=== PATIENT | female | born 2005 | race Caucasian/White ===

== ENCOUNTER 2024-04-19 17:58 | Emergency (ER) | payer OTHER ==
[~2024-04-19] VITALS: Ht 157.5 cm; Wt 64.5 kg
[2024-04-19 18:47] LABS: BASO # 0.06 K/mm3 (0.02-0.10); EOS # 0.18 K/mm3 (0.04-0.40); EOS % 2.8 % (1.0-5.0); HEMATOCRIT 35.9 % (37.0-47.0); HEMOGLOBIN 10.8 g/dL (12.5-16.0); LYMPH# 2.18 K/mm3 (1.50-4.00); MEAN CELL VOLUME 75 fl (78-100); MEAN CORPUSCULAR HEMOGLOBIN 23 pg (27-31); MEAN CORPUSCULAR HGB CONC 30 g/dL (33-37); MEAN PLATELET VOLUME 9.9 fl (7.4-10.4); MONO # 0.71 K/mm3 (0.20-0.80); NEU # 3.32 K/mm3 (1.40-6.50); PLATELET COUNT 310 K/mm3 (130-400); RED BLOOD COUNT 4.77 M/mm3 (4.10-5.30); RED CELL DISTRIBUTION WIDTH 14.4 % (11.5-14.5); WHITE BLOOD COUNT 6.5 K/mm3 (4.8-10.8)
[2024-04-19 18:50] LABS: ALBUMIN 4.3 g/dL (3.5-5.0)
[2024-04-19 18:52] LABS: CALCIUM 9.6 mg/dL (8.3-10.5)
[2024-04-19 18:53] LABS: TOTAL PROTEIN 7.4 g/dL (6.4-8.3)
[2024-04-19 18:55] LABS: TOTAL BILIRUBIN 0.2 mg/dL (0.2-1.2)
[2024-04-19] MEDS ORDERED: NS 1,000 ML IV SCH (19:00)
[2024-04-19 20:30] VITALS: BP 114/82
== END 2024-04-19 20:35 | disposition home or self-care (01) ==
LOC: ED 17:58
PROVIDERS: Nurse Practitioner
DX: R42 Dizziness and giddiness (principal); R00.0 Tachycardia, unspecified; D68.00 Von Willebrand disease, unspecified; Z86.2 Personal history of diseases of the blood and blood-forming organs and certain disorders involving the immune mechanism
CPT/HCPCS: J7030